=== PATIENT | male | born 1990 | race American Indian/Alaskan Native ===

== ENCOUNTER 2020-11-13 19:24 | Emergency (ER) | payer SELFPAY ==
[2020-11-13 22:16] VITALS: BP 119/60
[2020-11-14 06:57] LABS: Basophils # (Auto) 0.1 K/mm3 (0.0-0.1); Basophils % (Auto) 0.8 % (0.0-1.8); Eosinophils % (Auto) 0.5 % (0.0-4.3); Hematocrit 40.3 % (35.5-45.6); Hemoglobin 13.4 gm/dl (11.8-15.2); Lymphocytes # (Auto) 3.5 K/mm3 (1.2-5.4); Lymphocytes % (Auto) 43.3 % (13.4-35.0); Mean Corpuscular HGB Conc 33 % (32-34); Mean Corpuscular Volume 86 fl (84-94); Monocytes # (Auto) 0.5 K/mm3 (0.0-0.8); Monocytes % (Auto) 5.9 % (0.0-7.3); Platelet Count 208 K/mm3 (140-440); Red Cell Distribution Width 14.5 % (13.2-15.2)
[2020-11-14] MEDS ORDERED: levETIRAcetam 500 MG TAB PO ONE (07:22)
--- NOTE | 2020-11-14 07:25 | Emergency Department Report ---
ED Seizure HPI - General Chief Complaint: Medical Clearance Stated Complaint: HAD A SEIZURE HERE FOR KEPPRA REFILL Time Seen by Provider: 11/14/20 06:56 Source: patient Mode of arrival: Ambulatory Limitations: No Limitations - History of Present Illness Initial Comments: Patient is 30 years old male with history of seizure. Patient on Keppra 500 mg twice a day. Patient stated that he ran out of his Keppra medicine yesterday and he has 1 episode of generalized tonic-clonic seizure. Patient stated that he did not have any seizure after that. Patient denied any head injury or trauma. No fever, chills, neck pain, weakness numbness or tingling sensation. MD Complaint: seizure -: Last night Description of Episode: loss of consciousness, tonic-clonic movement, post-event confusion Trauma: No Seizure History: known seizure disorder Place: home Possible Precipitating Event: none Associated Symptoms: denies other symptoms - Related Data Allergies Allergy/AdvReac Type Severity Reaction Status Date / Time No Known Allergies Allergy Verified 11/13/20 22:17 ED Review of Systems ROS: Stated complaint: HAD A SEIZURE HERE FOR KEPPRA REFILL Other details as noted in HPI Comment: All other systems reviewed and negative Constitutional: denies: chills, fever Respiratory: denies: cough, shortness of breath, SOB with exertion, SOB at rest Cardiovascular: denies: chest pain, palpitations Gastrointestinal: denies: abdominal pain, nausea, vomiting, diarrhea, constipation, hematemesis, melena, hematochezia Musculoskeletal: denies: back pain Neurological: denies: headache, weakness, numbness, paresthesias, confusion Psychiatric: denies: suicidal thoughts ED Past Medical Hx - Past Medical History Previous Medical History?: Yes Hx Seizures: Yes - Surgical History Past Surgical History?: No - Social History Smoking Status: Current Every Day Smoker Substance Use Type: None ED Physical Exam - General Limitations: No Limitations General appearance: alert, in no apparent distress - Head Head exam: Present: atraumatic, normocephalic, normal inspection - Eye Eye exam: Present: normal appearance, PERRL - ENT ENT exam: Present: normal exam, normal orophraynx, mucous membranes moist - Neck Neck exam: Present: normal inspection, full ROM. Absent: tenderness, meningismus - Respiratory Respiratory exam: Present: normal lung sounds bilaterally - Cardiovascular Cardiovascular Exam: Present: regular rate, normal rhythm, normal heart sounds - GI/Abdominal GI/Abdominal exam: Present: soft, normal bowel sounds. Absent: distended, tenderness, guarding, rebound, rigid, organomegaly, mass, bruit, pulsatile mass, hernia - Extremities Exam Extremities exam: Present: normal inspection, full ROM, normal capillary refill. Absent: tenderness, pedal edema, joint swelling, calf tenderness - Back Exam Back exam: Present: normal inspection, full ROM. Absent: CVA tenderness (R), CVA tenderness (L) - Neurological Exam Neurological exam: Present: alert, oriented X3, CN II-XII intact, normal gait, reflexes normal. Absent: motor sensory deficit - Psychiatric Psychiatric exam: Present: normal mood - Skin Skin exam: Present: warm, intact, normal color ED Course Vital Signs 11/13/20 22:15 Temperature 99.3 F Pulse Rate 68 Respiratory 18 Rate Blood Pressure 119/60 [Left] O2 Sat by Pulse 98 Oximetry ED Medical Decision Making - Lab Data Result diagrams: 11/14/20 06:37 - Medical Decision Making Patient is 30 years old male with history of seizure. Patient on Keppra 500 mg twice a day. Patient stated that he ran out of his Keppra medicine yesterday and he has 1 episode of generalized tonic-clonic seizure. Patient stated that he did not have any seizure after that. Patient denied any head injury or trauma. No fever, chills, neck pain, weakness numbness or tingling sensation. Labs reviewed and is unremarkable. Patient given Keppra 1 g p.o. in the emergency room. No seizure activity observed. Patient given prescription for Keppra and advised to follow-up with his neurologist in the next 2 to 3 days and to return to the ER if he develop any new symptoms. Critical care attestation.: If time is entered above; I have spent that time in minutes in the direct care of this critically ill patient, excluding procedure time. ED Disposition Clinical Impression: Seizure Disposition: 01 HOME / SELF CARE / HOMELESS Is pt being admited?: No Condition: Stable Instructions: Seizure, Adult, [id number] Referrals: CHEN AGUILA MD [Referring] - 3-5 Days
[2020-11-14 07:35] LABS: BUN/Creatinine Ratio 16; Blood Urea Nitrogen 13 mg/dL (9-20); Calcium 8.7 mg/dL (8.4-10.2); Hemolysis Index 5
== END 2020-11-14 09:10 | disposition home or self-care (01) ==
LOC: ED 19:24
DX: G40.909 Epilepsy, unspecified, not intractable, without status epilepticus (principal); F17.200 Nicotine dependence, unspecified, uncomplicated
CPT/HCPCS: 36415; 80048; 85025

== ENCOUNTER 2021-02-20 16:26 | Emergency (ER) | payer SELFPAY ==
[2021-02-20] MEDS ORDERED: levETIRAcetam 1000 MG/NS 0.75% 1,000 MG/100 ML BAG IV ONE (17:07)
--- NOTE | 2021-02-20 17:27 | Emergency Department Report ---
HPI - General Chief Complaint: Seizure Time Seen by Provider: 02/20/21 16:55 - HPI HPI: Room 4 Patient is a 30-year-old male presenting with a chief complaint of aura. The patient states he has a history of seizures and has been out of his Keppra for t he past 3 days. The patient states since he has been out of his medication he has had intermittent episodes of spasms causing his body to jerk 1 time. The patient states he has these when he is close to having a seizure. Patient denies history of fever ED Past Medical Hx - Past Medical History Previous Medical History?: Yes Hx Seizures: Yes - Surgical History Past Surgical History?: No - Family History Family history: no significant - Social History Smoking Status: Current Some Day Smoker (Black and milds) Substance Use Type: None (Denies illicit drug use), Alcohol (Occasional) - Medications Home Medications: Home Medications Medication Instructions Recorded Confirmed Last Taken Type levETIRAcetam [Keppra TAB] 500 mg PO BID #120 tablet 02/20/21 Unknown Rx ED Review of Systems ROS: Stated complaint: SPASMS LIKE SEIZURE Other details as noted in HPI Constitutional: denies: fever Eyes: denies: eye pain ENT: denies: throat pain Respiratory: no symptoms reported Cardiovascular: denies: chest pain Endocrine: no symptoms reported Gastrointestinal: denies: abdominal pain Genitourinary: denies: dysuria Musculoskeletal: denies: back pain Neurological: other (aura) Physical Exam - Physical Exam Vital Signs: Vital Signs 02/20/21 02/20/21 16:38 17:08 Temperature 98.8 F Pulse Rate 100 H 69 Respiratory 16 14 Rate Blood Pressure 118/77 116/74 [Left] O2 Sat by Pulse 100 97 Oximetry Physical Exam: GENERAL: The patient is well-developed well-nourished male sitting on stretcher using cell phone not appearing to be in acute distress. [] HEENT: Normocephalic. Atraumatic. Extraocular motions are intact. Patient has moist mucous membranes. NECK: Supple. Trachea midline CHEST/LUNGS: Clear to auscultation. There is no respiratory distress noted. HEART/CARDIOVASCULAR: Regular. There is no tachycardia. There is no gallop rub or murmur. ABDOMEN: Abdomen is soft, nontender. Patient has normal bowel sounds. There is no abdominal distention. SKIN: There is no rash. There is no edema. There is no diaphoresis. NEURO: The patient is awake, alert, and oriented. The patient is cooperative. The patient has no focal neurologic deficits. The patient has normal speech. Cranial nerves II through XII grossly intact. GCS 15. During the exam the patient has a "spasm" causing him to jerk both arms upwards once MUSCULOSKELETAL: There is no evidence of acute injury. ED Course Vital Signs 02/20/21 02/20/21 16:38 17:08 Temperature 98.8 F Pulse Rate 100 H 69 Respiratory 16 14 Rate Blood Pressure 118/77 116/74 [Left] O2 Sat by Pulse 100 97 Oximetry - Reevaluation(s) Reevaluation #1: 02/20/21 18:25 Patient states he feels improved ED Medical Decision Making - Lab Data Result diagrams: 02/20/21 17:46 02/20/21 17:46 Laboratory Tests 02/20/21 02/20/21 17:46 17:46 WBC 8.8 RBC 5.04 H Hgb 13.9 Hct 43.5 MCV 86 MCH 28 MCHC 32 RDW 14.3 Plt Count 169 Lymph % (Auto) 32.1 Stearns % (Auto) 6.0 Eos % (Auto) 0.2 Baso % (Auto) 0.6 Lymph # (Auto) 2.8 Stearns # (Auto) 0.5 Eos # (Auto) 0.0 Baso # (Auto) 0.1 Seg Neutrophils % 61.1 Seg Neutrophils # 5.4 Sodium 138 Potassium 3.6 Chloride 105.9 Carbon Dioxide 21 L Anion Gap 15 BUN 7 L Creatinine 0.7 L Estimated GFR > 60 BUN/Creatinine Ratio 10 Glucose 93 Calcium 8.3 L Magnesium 1.70 - Differential Diagnosis Epilepsy Critical care attestation.: If time is entered above; I have spent that time in minutes in the direct care of this critically ill patient, excluding procedure time. ED Disposition Clinical Impression: Epilepsy, Encounter for seizure prophylaxis Disposition: 01 HOME / SELF CARE / HOMELESS Is pt being admited?: No Does the pt Need Aspirin: No Condition: Stable Instructions: Seizure, Adult, [id number] Additional Instructions: Return to the emergency department should you develop worsening symptoms, inability to tolerate food or liquids, high fever or any other concerns Prescriptions: levETIRAcetam [Keppra TAB] 500 mg PO BID #120 tablet Referrals: PRIMARY CAREMD [Primary Care Provider] - 3-5 Days NAREN ESTEBAN MD [Staff Physician] - 3-5 Days (Dr. Esteban is a neurologist. Please follow-up with him for further evaluation) Time of Disposition: 18:25
[2021-02-20 18:10] LABS: Basophils # (Auto) 0.1 K/mm3 (0.0-0.1); Basophils % (Auto) 0.6 % (0.0-1.8); Eosinophils % (Auto) 0.2 % (0.0-4.3); Hematocrit 43.5 % (35.5-45.6); Hemoglobin 13.9 gm/dl (11.8-15.2); Lymphocytes # (Auto) 2.8 K/mm3 (1.2-5.4); Lymphocytes % (Auto) 32.1 % (13.4-35.0); Mean Corpuscular HGB Conc 32 % (32-34); Mean Corpuscular Volume 86 fl (84-94); Monocytes # (Auto) 0.5 K/mm3 (0.0-0.8); Platelet Count 169 K/mm3 (140-440); Red Blood Count 5.04 M/mm3 (3.65-5.03); Red Cell Distribution Width 14.3 % (13.2-15.2)
[2021-02-20 18:21] LABS: BUN/Creatinine Ratio 10; Blood Urea Nitrogen 7 mg/dL (9-20); Calcium 8.3 mg/dL (8.4-10.2); Hemolysis Index 7
[2021-02-20 18:45] VITALS: BP 122/77
== END 2021-02-20 18:45 | disposition home or self-care (01) ==
LOC: ED 16:26
DX: G40.909 Epilepsy, unspecified, not intractable, without status epilepticus (principal); F17.200 Nicotine dependence, unspecified, uncomplicated; F10.20 Alcohol dependence, uncomplicated
CPT/HCPCS: 36415; 80048; 83735; 85025; 96374; 99284; J1953